=== PATIENT | female | born 1970 | race Caucasian/White ===

== ENCOUNTER 2016-07-16 18:27 | Emergency (ER) | payer OTHER ==
[2016-07-16 18:55] LABS: Hematocrit 30 % (35-47); Hemoglobin 9.3 g/dl (12.0-16.0); Mean Corpuscular HGB Conc 31 g/dl (31-36); Mean Corpuscular Hemoglobin 22 pg (27-31); Mean Platelet Volume 8 um3 (7.4-10.4); Red Blood Count 4.31 10^6/ul (4.0-5.4); Red Cell Distribution Width 18 % (10.5-15); White Blood Count 7.5 10^3/ul (3.5-10.8)
[2016-07-16 18:57] LABS: Comments Flag Yes; Mean Corpuscular Volume 69 fL (80-97)
--- NOTE | 2016-07-16 19:09 | RAD ---
INDICATION: Chest pain COMPARISON: November 05, 2012 TECHNIQUE: An AP portable view obtained at 1900 hours is submitted. FINDINGS: Bones/Soft Tissues: There are no acute bony findings. Cardiomediastinal: The cardiomediastinal silhouette is normal. Lungs: There are no infiltrates. Pleura: There are no pleural effusions. Other: None IMPRESSION: NORMAL CHEST.
[2016-07-16 19:11] VITALS: BP 139/74
[2016-07-16 19:14] LABS: Albumin 4.1 g/dL (3.2-5.2); BUN/Creatinine Ratio 17.2 (8-20); Calcium 9.3 mg/dL (8.6-10.3); EGFR African American 84.6 (>60); EGFR Non-African American 65.8 (>60); Globulin 2.6 g/dL (2-4); Potassium 3.5 mmol/L (3.5-5.0); Total Bilirubin 0.3 mg/dL (0.2-1.0); Total Protein 6.7 g/dL (6.4-8.9)
[2016-07-16] MEDS ORDERED: NS 0.9% 1000 ML* 1,000 ML IV ONE (19:50)
--- NOTE | 2016-07-16 19:52 | ED ---
Aurea Ruffin Michael, scribed for Tricia Sultana MD on 07/16/16 at 1843 . HPI Chest Pain - HPI Summary HPI Summary: 45 y/o female comes to the ED presenting with episodic chest "pulling" for the past 11 days. The pt reports that the chest pulling started as intermittent episodes, and then the pain increased frequency since 4 days ago. She states experiencing 4-5 episodes of chest tightness per minute. Pt states has a h/o PVCs and thinks this is, but seems more frequent than normal. Pt states she has been more fatigued than normal. Pt denies sob. States feels little nausea and little lightheaded. Pt has an appt with PCP for these sx on Monday. Pt states she cut down caffeine 10 days ago, but states she still drinks 1/2 can ever other day or so. Pt states occasionally with episodes feels sob, but episodes and sensations are very brief. Pt states this week she had cramping of a varicose vein in LE, fatigue, SOB, lightheadedness, nausea, and a cough. The pt also states exposure to ticks in January of 2016. Pt states has a h/o GERD and gets "esophageal spasms" but does not take antacid. Pt also with a h/o anemia related to very heavy periods. Pt does not take vitamins or iron supplementation. Pt has not seen [employer]UPATIONS TE[employer]ER in > 1 year. States pt's mom for CAD - however mom was a smoker, had previous vascular dx and hld. The PMHx is significant for GERD and anemia. The FHx is significant for cardiac disease. Pt does not exercise routinely, but does not get cp or sob with activity - History of Current Complaint Chief Complaint: EDChestPainROMI Time Seen by Provider: 07/16/16 18:31 Hx Obtained From: Patient, Medical Records Onset/Duration: Started Weeks Ago, Still Present, Worse Since - 07/12/16 Timing: Intermittent Initial Severity: Mild Current Severity: Moderate Pain Intensity: 3 Pain Scale Used: 0-10 Numeric Chest Pain Location: Diffuse Chest Pain Radiates: No Character: Fluttering, Pounding, Skipped Beats, Tightness Aggravating Factor(s): Exertion Alleviating Factor(s): Nothing Associated Signs and Symptoms: Positive: Chest Pain, Shortness of Breath, Lightheadedness, Nausea, Cough, Other: - cramping in varicose vein in LE. fatigue. palpitations. - Risk Factors Pulmonary Embolism Risk Factors: Negative TAD Risk Factors: Negative - Allergy/Home Medications Allergies/Adverse Reactions: Allergies Allergy/AdvReac Type Severity Reaction Status Date / Time No Known Allergies Allergy Verified 07/16/16 18:37 PMH/Surg Hx/FS Hx/Imm Hx Previously Healthy: No - anemia Endocrine/Hematology History: Denies: Hx Anticoagulant Therapy, Hx Diabetes Cardiovascular History: Reports: Hx Angina Denies: Hx Hypertension, Hx Pacemaker/ICD GI History: Reports: Hx Gastroesophageal Reflux Disease History: Denies: Hx Renal Disease Musculoskeletal History: Reports: Hx Back Problems Sensory History: Reports: Hx Contacts or Glasses Denies: Hx Hearing Aid Opthamlomology History: Reports: Hx Contacts or Glasses Psychiatric History: Reports: Hx Depression - seasonal/situational Denies: Hx Panic Disorder - Surgical History Surgery Procedure, Year, and Place: Back surgery-2 discs repaired (anterior approach). Tubal ligation. Tonsillectomy and adenoidectomy Infectious Disease History: No Infectious Disease History: Denies: Traveled Outside the [place] in Last 30 Days - Family History Known Family History: Positive: Cardiac Disease - Social History Occupation: Employed Full-time Lives: With Family Alcohol Use: None Substance Use Type: Reports: None Smoking Status (MU): Never Smoked Tobacco Review of Systems Positive: Fatigue. Negative: Fever Eyes: Negative Positive: Palpitations, Chest Pain Positive: Shortness Of Breath, Cough Gastrointestinal: Negative Positive: Nausea. Negative: Vomiting Genitourinary: Negative Positive: Other - brief cramping varicose vein LE Neurological: Other - lightheadedness Negative: Weakness Psychological: Normal All Other Systems Reviewed And Are Negative: Yes Physical Exam Triage Information Reviewed: Yes Vital Signs On Initial Exam: Initial Vitals Temp Pulse Resp BP Pulse Ox 99.2 F 88 16 156/87 100 07/16/16 18:31 07/16/16 18:31 07/16/16 18:31 07/16/16 18:31 07/16/16 18:31 Vital Signs Reviewed: Yes Appearance: Positive: Well-Appearing, No Pain Distress, Well-Nourished Skin: Positive: Warm, Dry Head/Face: Positive: Normal Head/Face Inspection Eyes: Positive: Normal, EOMI, YOVANY ENT: Positive: Normal ENT inspection, Pharynx normal, TMs normal. Negative: Nasal congestion Neck: Positive: Supple, Nontender, No Lymphadenopathy Respiratory/Lung Sounds: Positive: Clear to Auscultation, Breath Sounds Present. Negative: Stridor, Wheezes Cardiovascular: Positive: Normal, RRR, Other - no bruits b/l. Negative: Murmur , Rub Abdomen Description: Positive: Nontender, No Organomegaly, Soft Bowel Sounds: Positive: Present Musculoskeletal: Positive: Normal Neurological: Positive: Normal, Sensory/Motor Intact, Alert, Oriented to Person Place, Time. Negative: Ataxic Gait Psychiatric: Positive: Normal AVPU Assessment: Alert - Trena Coma Scale Best Eye Response: 4 - Spontaneous Best Motor Response: 6 - Obeys Commands Best Verbal Response: 5 - Oriented Coma Scale Total: 15 Diagnostics - Vital Signs Vital Signs Temp Pulse Resp BP Pulse Ox 07/16/16 18:31 99.2 F 88 16 156/87 100 - Laboratory Lab Results: Lab Results 07/16/16 07/16/16 07/16/16 Range/Units 18:43 18:43 18:43 WBC 7.5 (3.5-10.8) 10^3/ul RBC 4.31 (4.0-5.4) 10^6/ul Hgb 9.3 L (12.0-16.0) g/dl Hct 30 L (35-47) % MCV 69 L (80-97) fL MCH 22 L (27-31) pg MCHC 31 (31-36) g/dl RDW 18 H (10.5-15) % Plt Count 292 (150-450) 10^3/ul MPV 8 (7.4-10.4) um3 Neut % (Auto) 61.0 (38-83) % Lymph % (Auto) 30.6 (25-47) % [place] % (Auto) 7.0 (1-9) % Eos % (Auto) 0.9 (0-6) % Baso % (Auto) 0.5 (0-2) % Absolute Neuts (auto) 4.5 (1.5-7.7) 10^3/ul Absolute Lymphs (auto) 2.3 (1.0-4.8) 10^3/ul Absolute Monos (auto) 0.5 (0-0.8) 10^3/ul Absolute Eos (auto) 0.1 (0-0.6) 10^3/ul Absolute Basos (auto) 0 (0-0.2) 10^3/ul Absolute Nucleated RBC 0 10^3/ul Nucleated RBC % 0 D-Dimer, Quantitative < 200 (Less Than 230) ng/mL Sodium 136 (133-145) mmol/L Potassium 3.5 (3.5-5.0) mmol/L Chloride 104 (101-111) mmol/L Carbon Dioxide 27 (22-32) mmol/L Anion Gap 5 (2-11) mmol/L BUN 16 (6-24) mg/dL Creatinine 0.93 (0.51-0.95) mg/dL Est GFR ( Amer) 84.6 (>60) Est GFR (Non-Af Amer) 65.8 (>60) BUN/Creatinine Ratio 17.2 (8-20) Glucose 104 H (70-100) mg/dL Calcium 9.3 (8.6-10.3) mg/dL Magnesium 2.0 (1.9-2.7) mg/dL Total Bilirubin 0.30 (0.2-1.0) mg/dL AST 12 L (13-39) U/L ALT 12 (7-52) U/L Alkaline Phosphatase 48 (34-104) U/L Total Creatine Kinase 58 (10-223) U/L Troponin I 0.00 (<0.04) ng/mL Total Protein 6.7 (6.4-8.9) g/dL Albumin 4.1 (3.2-5.2) g/dL Globulin 2.6 (2-4) g/dL Albumin/Globulin Ratio 1.6 (1-3) TSH Pending Result Diagrams: 07/16/16 18:43 07/16/16 18:43 Lab Statement: Any lab studies that have been ordered have been reviewed, and results considered in the medical decision making process. - Radiology CXR Xray Interpretation: No Acute Changes Radiology Interpretation Completed By: Radiologist - CT CTA Chest/Thorax CT Interpretation: No Acute Changes CT Interpretation Completed By: Radiologist - EKG EK EKG Rhythm: Sinus Rhythm - 86 bpm EKG Comparison: No Significant Change Chest Pain Course/Dx - Course Assessment/Plan: Pt presents with feeling of pulling in neck and chest Pt state sx are brief and fleeting. During examination, pt note to have PVC, isolated, every 20-30 beats - pt was sensing these as "episodes" Pt without focal findings on exam. Diff includes CAD (low suspcion, normal EKG - will check trop x 1), PE, thyroid, electrolyte, dehydration. Will give IVF, CTA, labs, reassess If w/u neg will d/c pt with pcp appt monday - pt in agreement with plan. Will d.c pcp ?stress, ? holter - Diagnoses Provider Diagnoses: PVC (premature ventricular contraction), GERD (gastroesophageal reflux disease) , Anemia Discharge - Discharge Plan Condition: Stable Disposition: HOME Prescriptions: Ferrous Sulfate TAB* 325 mg PO BID #60 tab Patient Education Materials: Gastroesophageal Reflux Disease (ED), Premature Ventricular Contractions (ED), Anemia (ED) Referrals: Law Juan MD [Primary Care Provider] - Maxi Richards MD [Medical Doctor] - Levi Ramirez MD [Medical Doctor] - Additional Instructions: - Stay well hydrated. Drink plenty of non-alcoholic, non-caffinated beverages - Eat regular, healthy meals - small, frequent meals - It is recommended you take iron 2 times a day to help with your iron - Avoid excess caffeine - Avoid spicy food, acidic food, tomato based foods, fried foods - It is recommended you follow-up with your primary doctor on Monday as scheduled, Dr. Richards for your heavy periods, and GI for your GERD Call your doctor or return with questions or concerns The documentation as recorded by the Aurea santos Michael accurately reflects the service I personally performed and the decisions made by me, Tricia Sultana MD.
[2016-07-16] MEDS ORDERED: Iohexol 350* (CONTRAST) 500 ML MDV IV ONE (19:54)
[2016-07-16 19:59] LABS: TSH (Thyroid Stimulating Horm) 3.1 mcIU/mL (0.34-5.60)
[2016-07-16 20:04] LABS: EBV Response NO
[2016-07-16 20:20] LABS: Manual Entry Verification DOM0004; Mono Internal Control QC Line Present
--- NOTE | 2016-07-16 20:36 | RAD ---
INDICATION: Chest pain. Short of breath. Evaluate for pulmonary embolus. Chest x-ray July 16, 2016 COMPARISON: Chest x-ray July 16, 2016 TECHNIQUE: Axial source images were obtained from the thoracic inlet to the hemidiaphragms following administration of [address] angiographic technique was utilized. Coronal and sagittal reconstructed images were acquired. CHEST FINDINGS: Neck/thyroid: The visualized neck to include the thyroid appear normal. Chest wall: There are no acute abnormalities of the bony thorax or chest wall. There is no supraclavicular, infraclavicular, or axillary lymphadenopathy. Lungs : There are no pulmonary parenchymal masses or infiltrates. The pulmonary interstitium appears normal. There are no endobronchial lesions. Cardiomediastinal structures: There is no CT evidence of acute pulmonary embolic disease. The heart is normal in size. There is no pericardial effusion. There is no evidence of aortic aneurysm or dissection. There is no mediastinal or hilar adenopathy. The esophagus appears normal. Pleura : There are no pleural-based masses or effusions. Other: There is a small hiatal hernia.. IMPRESSION: NO CT EVIDENCE OF ACUTE PULMONARY EMBOLIC DISEASE. LUNGS CLEAR.
== END 2016-07-16 21:20 | disposition home or self-care (01) ==
LOC: ED 18:27
DX: I49.3 Ventricular premature depolarization (principal); K21.9 Gastro-esophageal reflux disease without esophagitis; D64.9 Anemia, unspecified; R06.02 Shortness of breath; R05 Cough; R11.0 Nausea; R42 Dizziness and giddiness
CPT/HCPCS: 36415; 71010; 71275; 80053; 82550; 83735; 84443; 84484; 85025; 85379; 86308; 86618; 93005; 96360; 99283; Q9967

== ENCOUNTER 2018-04-06 18:30 | Emergency (ER) | payer BC, OTHER ==
[2018-04-06 20:21] LABS: ABS Basophils 0 10^3/ul (0-0.2); ABS Eosinophils 0.1 10^3/ul (0-0.6); ABS Lymphocytes 1.9 10^3/ul (1.0-4.8); ABS Monocytes 0.5 10^3/ul (0-0.8); ABS Neutrophils 4.4 10^3/ul (1.5-7.7); ABS Nucleated RBC 0 10^3/ul; Eosinophil % 1.2 % (0-6); Hematocrit 29 % (35-47); Hemoglobin 8.9 g/dl (12.0-16.0); Lymphocyte % 27.6 % (25-47); Mean Corpuscular HGB Conc 31 g/dl (31-36); Mean Corpuscular Hemoglobin 20 pg (27-31); Mean Corpuscular Volume 64 fL (80-97); Mean Platelet Volume 7.7 um3 (7.4-10.4); Nucleated Red Blood Cells % 0; Platelet Count 331 10^3/ul (150-450); Red Blood Count 4.44 10^6/ul (4.00-5.40); Red Cell Distribution Width 19 % (10.5-15)
[2018-04-06 20:27] LABS: EGFR Non-African American 81.1 (>60)
--- NOTE | 2018-04-06 20:29 | ED ---
HPI Chest Pain - HPI Summary HPI Summary: Patient is a 45 y/o F w/ c/o chest pain onsetting 1.5 hours ago. She also notes intermittent left arm pain/numbness and right eye blurriness. Patient denies N/V /D and SOB. She reports fatigue and neck pain w/ ACOSTA for the past few days as well. In the room, she notes that she is experiencing a "prickly" feeling in her chest, right eye blurriness, and neck pain still. She denies any home medications. PMHx of anemia. FMHx of cardiac disease in mother. On triage, pain is rated 3/10, nothing is noted to aggravate/alleviate Sx. Allergies are reviewed. - History of Current Complaint Chief Complaint: EDChestWallPain Time Seen by Provider: 04/06/18 20:03 Hx Obtained From: Patient Onset/Duration: Started Hours Ago - chest pain, Started Days Ago - Sx other than chest pain, Still Present - prickly" feeling in her chest, right eye blurriness, and neck pain Current Severity: Mild - 3/10 Pain Intensity: 3 Pain Scale Used: 0-10 Numeric - 3/10 Character: Other: - currently described as a "prickly" feeling Aggravating Factor(s): Nothing Alleviating Factor(s): Nothing Associated Signs and Symptoms: Positive: Chest Pain, Vision Changes - blurred vision at right eye, Headaches, Other: - POSITIVE: neck pain, fatigue, left arm numbness and pain NEGATIVEL diarrhea. Negative: Shortness of Breath, Nausea, Vomiting - Allergy/Home Medications Allergies/Adverse Reactions: Allergies Allergy/AdvReac Type Severity Reaction Status Date / Time No Known Allergies Allergy Verified 04/06/18 19:08 Home Medications: Home Medications NK [No Home Medications Reported] 04/06/18 [History Confirmed 04/06/18] PMH/Surg Hx/FS Hx/Imm Hx Endocrine/Hematology History: Denies: Hx Anticoagulant Therapy, Hx Diabetes Cardiovascular History: Reports: Hx Angina Denies: Hx Hypertension, Hx Pacemaker/ICD GI History: Reports: Hx Gastroesophageal Reflux Disease History: Denies: Hx Renal Disease Musculoskeletal History: Reports: Hx Back Problems Sensory History: Reports: Hx Contacts or Glasses Denies: Hx Hearing Aid Opthamlomology History: Reports: Hx Contacts or Glasses Psychiatric History: Reports: Hx Depression - seasonal/situational Denies: Hx Panic Disorder - Surgical History Surgery Procedure, Year, and Place: Back surgery-2 discs repaired (anterior approach). Tubal ligation. Tonsillectomy and adenoidectomy Infectious Disease History: No Infectious Disease History: Denies: Traveled Outside the [place] in Last 30 Days - Family History Known Family History: Positive: Cardiac Disease - Social History Alcohol Use: None Substance Use Type: Reports: None Smoking Status (MU): Never Smoked Tobacco Review of Systems Positive: Fatigue Positive: Blurred Vision - right eye Positive: Chest Pain Negative: Shortness Of Breath Negative: Vomiting, Diarrhea, Nausea Positive: Other - left arm pain, neck pain Positive: Headache, Numbness - left arm All Other Systems Reviewed And Are Negative: Yes Physical Exam - Summary Physical Exam Summary: Appearance: The patient is well-nourished in no acute distress and in no acute pain. Skin: The skin is warm and dry and skin color reflects adequate perfusion. HEENT: The head is normocephalic and atraumatic. The pupils are equal and reactive. The conjunctivae are clear and without drainage. Nares are patent and without drainage. Mouth reveals moist mucous membranes and the throat is without erythema and exudate. The external ears are intact. The ear canals are patent and without drainage. The tympanic membranes are intact. Neck: The neck is supple with full range of motion and non-tender. There are no carotid bruits. There is no neck vein distension. Respiratory: Chest is non-tender. Lungs are clear to auscultation and breath sounds are symmetrical and equal. Cardiovascular: Heart is regular rate and rhythm. There is no murmur or rub auscultated. There is no peripheral edema and pulses are symmetrical and equal. Abdomen: The abdomen is soft and non-tender. There are normal bowel sounds heard in all four quadrants and there is no organomegaly palpated. Musculoskeletal: There is no back tenderness noted. Extremities are non-tender with full range of motion. There is good capillary refill. There is no peripheral edema or calf tenderness elicited. Neurological: Patient is alert and oriented to person, place and time. The patient has symmetrical motor strength in all four extremities. Cranial nerves are grossly intact. Deep tendon reflexes are symmetrical and equal in all four extremities. Psychiatric: The patient has an appropriate affect and does not exhibit any anxiety or depression. Triage Information Reviewed: Yes Vital Signs On Initial Exam: Initial Vitals Temp Pulse Resp BP Pulse Ox 97.5 F 77 16 167/99 100 04/06/18 19:04 04/06/18 19:04 04/06/18 19:04 04/06/18 19:04 04/06/18 19:04 Vital Signs Reviewed: Yes Diagnostics - Vital Signs Vital Signs Temp Pulse Resp BP Pulse Ox 04/06/18 20:12 77 16 100 04/06/18 20:11 19 157/107 04/06/18 19:04 97.5 F 77 16 167/99 100 - Laboratory Lab Results: Lab Results 04/06/18 Range/Units 19:55 WBC 7.0 (3.5-10.8) 10^3/ul RBC 4.44 (4.00-5.40) 10^6/ul Hgb 8.9 L (12.0-16.0) g/dl Hct 29 L (35-47) % MCV 64 L (80-97) fL MCH 20 L (27-31) pg MCHC 31 (31-36) g/dl RDW 19 H (10.5-15) % Plt Count 331 (150-450) 10^3/ul MPV 7.7 (7.4-10.4) um3 Neut % (Auto) 63.2 (38-83) % Lymph % (Auto) 27.6 (25-47) % [place] % (Auto) 7.3 H (0-7) % Eos % (Auto) 1.2 (0-6) % Baso % (Auto) 0.7 (0-2) % Absolute Neuts (auto) 4.4 (1.5-7.7) 10^3/ul Absolute Lymphs (auto) 1.9 (1.0-4.8) 10^3/ul Absolute Monos (auto) 0.5 (0-0.8) 10^3/ul Absolute Eos (auto) 0.1 (0-0.6) 10^3/ul Absolute Basos (auto) 0 (0-0.2) 10^3/ul Absolute Nucleated RBC 0 10^3/ul Nucleated RBC % 0 Result Diagrams: 04/06/18 19:55 04/06/18 19:55 Lab Statement: Any lab studies that have been ordered have been reviewed, and results considered in the medical decision making process. - Radiology CXR Xray Interpretation: No Acute Changes Radiology Interpretation Completed By: ED Physician - no acute pathology, pending official report. - EKG 1935 Cardiac Rate: NL - rate of 74 BPM EKG Rhythm: Sinus Rhythm ST Segment: Normal Ectopy: None EKG Interpretation: no STEMI Chest Pain Course/Dx - Course Course Of Treatment: Ms. Colton Sanon presented with an atypical chest pain of about one and a half hours duration. He was left sided and described as pins and needles. There were no exacerbating or relieving factors. The symptoms went down her left arm. She is recently had tension in her neck. Her exam was unremarkable with good pulses all around and no bruits. I cannot reproduce the symptoms. She was kept on a monitor and evaluated with labs including a delayed troponin and d-dimer. I don't think anything dangerous is going on and I recommended close follow-up. - Diagnoses Provider Diagnoses: Chest pain Discharge - Sign-Out/Discharge Documenting (check all that apply): Patient Departure - discharge - Discharge Plan Condition: Stable Disposition: HOME Patient Education Materials: Chest Pain (ED) Referrals: Law Juan MD [Primary Care Provider] - 2 Days Additional Instructions: RETURN TO ED FOR ANY NEW OR WORSENING SYMPTOMS. FOLLOW UP WITH PRIMARY CARE PHYSICIAN IN 1-2 DAYS. - Billing Disposition and Condition Condition: STABLE Disposition: Home - Attestation Statements Document Initiated by Gilda: Yes Documenting Scribe: Orlando Carias Provider For Whom Gilda is Documenting (Include Credential): Ramu Celaya MD Scribe Attestation: Orlando Ruffin , scribed for Ramu Celaya MD on 04/06/18 at 2220. Scribe Documentation Reviewed: Yes Provider Attestation: The documentation as recorded by the Orlando santos accurately reflects the service I personally performed and the decisions made by me, Ramu Celaya MD
[2018-04-06] MEDS ORDERED: Ibuprofen TAB* 600 MG PO ONE (21:14)
[2018-04-07 00:28] VITALS: BP 135/79
--- NOTE | 2018-04-07 07:46 | RAD ---
Indication: LEFT side chest pain. Comparison: July 16, 2016 CT chest. July 16, 2016 chest radiograph. Technique: Standing PA 1930 hours dual-energy technique. Report: LEFT epicardial fat pad noted. No focal pulmonary lesion, compelling alveolar consolidation, pleural effusion, pneumothorax. The heart, pulmonary vasculature, and mediastinal contours are unremarkable. No rib fracture evident. IMPRESSION: #. No evidence for acute intrathoracic disease. R0
== END 2018-04-07 00:54 | disposition home or self-care (01) ==
LOC: ED 18:30
DX: R07.9 Chest pain, unspecified (principal); H53.8 Other visual disturbances; R53.83 Other fatigue; M54.2 Cervicalgia
CPT/HCPCS: 36415; 71045; 80053; 83605; 84484; 85025; 85379; 93005; 99283; A9270-GY

== ENCOUNTER 2018-12-01 16:39 | Emergency (ER) | payer OTHER ==
[2018-12-01 17:04] VITALS: BP 156/82
[2018-12-01] MEDS ORDERED: Cyclobenzaprine TAB* 10 MG PO ONE ×2 (17:11→18:19)
--- NOTE | 2018-12-01 17:18 | UC ---
Neck Pain HPI - HPI Summary HPI Summary: WOKE UP THIS MORNING WITH SHARP LEFT-SIDED POSTERIOR NECK PAIN AND INABILITY TO ROTATE HER HEAD. FEELS LIKE MUSCLE SPASMS. HAS HAD A SLIGHT PINCH IN HER LEFT POSTERIOR NECK/SHOULDER FOR THE PAST WEEK AND A HALF. NO NUMBNESS/TINGLING. DENIES ANY TRAUMA OR INJURY OR UNUSUAL ACTIVITY. - History of Current Complaint Chief Complaint: UCUpperExtremity Stated Complaint: NECK STRAIN Time Seen by Provider: 12/01/18 16:46 Hx Obtained From: Patient Mechanism Of Injury: No Known Trauma Timing: Constant Onset/Duration: Sudden Onset, Lasting Hours, Still Present Severity: Moderate Pain Intensity: 5 Pain Scale Used: 0-10 Numeric Location: Discrete At: - LEFT POSTERIOR Character: Sharp, Spasmotic Aggravating Factors: Movement Alleviating Factors: Nothing Associated Signs & Symptoms: Negative: Swelling, Weakness, Headache, Paresthesia - Allergies/Home Medications Allergies/Adverse Reactions: Allergies Allergy/AdvReac Type Severity Reaction Status Date / Time No Known Allergies Allergy Verified 12/01/18 17:04 PMH/Surg Hx/FS Hx/Imm Hx Previously Healthy: Yes Other History Of: Negative For: Anticoagulant Therapy - Surgical History Surgical History: Yes Surgery Procedure, Year, and Place: Back surgery-2 discs repaired (anterior approach). Tubal ligation. Tonsillectomy and adenoidectomy - Family History Known Family History: Positive: Cardiac Disease - Social History Alcohol Use: Rare Substance Use Type: None Smoking Status (MU): Never Smoked Tobacco - Immunization History Most Recent Tetanus Shot: within 10 years Review of Systems All Other Systems Reviewed And Are Negative: Yes Constitutional: Positive: Negative Respiratory: Positive: Negative Cardiovascular: Positive: Negative Gastrointestinal: Positive: Negative Musculoskeletal: Positive: Arthralgia, Decreased ROM, Myalgia Neurological: Positive: Negative. Negative: Paresthesia Physical Exam Triage Information Reviewed: Yes Appearance: Well-Nourished, Pain Distress - MILD Vital Signs: Initial Vital Signs Temp 98.4 F 12/01/18 16:57 Pulse 91 12/01/18 16:57 Resp 18 12/01/18 16:57 BP 156/82 12/01/18 16:57 Pulse Ox 100 12/01/18 16:57 Vital Signs Reviewed: Yes Eyes: Positive: Conjunctiva Clear ENT: Positive: Hearing grossly normal Neck: Positive: Supple, No Lymphadenopathy, Tenderness @ - LEFT POSTERIOR NECK PARASPINAL MUSCLES. NO BONY TENDERNESS Respiratory: Positive: No respiratory distress, No accessory muscle use Cardiovascular: Positive: Pulses Normal Abdomen Description: Positive: Soft Musculoskeletal: Positive: No Edema Neurological: Positive: Alert Psychological: Positive: Age Appropriate Behavior Skin: Negative: Rashes Diagnostics - Radiology C-SPINE XRAYS Radiology Interpretation Completed By: Radiologist Summary of Radiographic Findings: The vertebra are in normal alignment. No prevertebral soft tissue swelling or fracture is seen. Disc spaces appear maintained. No radiographic evidence of fracture or subluxation. Neck Pain Course/Dx - Differential Dx/Diagnosis Provider Diagnosis: Strain of neck muscle Discharge - Sign-Out/Discharge Documenting (check all that apply): Patient Departure All imaging exams completed and their final reports reviewed: Yes - Discharge Plan Condition: Stable Disposition: HOME Prescriptions: Cyclobenzaprine TAB* [Flexeril TAB*] 10 mg PO TID PRN #30 tab PRN Reason: Pain Ibuprofen TAB* [Motrin TAB* 800 MG] 800 mg PO Q8H PRN #30 tab PRN Reason: Pain predniSONE TAB* [Deltasone 20 MG TAB*] 40 mg PO DAILY #10 tab Patient Education Materials: Muscle Strain (ED) Referrals: Law Juan MD [Primary Care Provider] - If Needed Additional Instructions: CERVICAL SPINE X-RAYS TODAY SHOW: THE VERTEBRA ARE IN NORMAL ALIGNMENT. NO PREVERTEBRAL SOFT TISSUE SWELLING OR FRACTURE IS SEEN. DISC SPACES APPEAR MAINTAINED. NO RADIOGRAPHIC EVIDENCE OF FRACTURE OR SUBLUXATION. YOU'RE LIKELY EXPERIENCING A MUSCLE STRAIN/SPASM. TAKE THE FLEXERIL 3 TIMES DAILY NEEDED. BE AWARE THIS MAY MAKE YOU GROGGY. IBUPROFEN NEEDED FOR DISCOMFORT. IF THESE MEDICATIONS ARE NOT ALLEVIATING YOUR SYMPTOMS YOU MAY TRY A SHORT BURST OF PREDNISONE. USE HEAT, MASSAGE AND BE SURE TO GO THROUGH SLOW RANGE OF MOTION AND STRETCHING EXERCISES DAILY ABLE TO PREVENT STIFFENING UP AND MAKING THE DISCOMFORT WORSE. FOLLOW-UP WITH YOUR PCP IF YOU'RE NOT IMPROVING EXPECTED OVER THE NEXT SEVERAL DAYS. - Billing Disposition and Condition Condition: STABLE Disposition: Home
== END 2018-12-01 18:39 | disposition home or self-care (01) ==
LOC: UCEAST 16:39
DX: S16.1XXA Strain of muscle, fascia and tendon at neck level, initial encounter (principal); X58.XXXA Exposure to other specified factors, initial encounter; Y92.9 Unspecified place or not applicable
CPT/HCPCS: 72040; 99212; A9270-GY; G0463

== ENCOUNTER 2019-08-23 15:13 | Emergency (ER) | payer OTHER ==
[2019-08-23 15:37] VITALS: BP 152/98
--- NOTE | 2019-08-23 16:18 | UC ---
Skin Complaint HPI - HPI Summary HPI Summary: 48-year-old female presenting with complaint of "itchy skin all over" 9 days. Patient denies any obvious rash or lesions on the skin. States the itching is constant and "switches from different body parts." Denies new products, foods, medications, exposures. Denies lip, tongue, throat swelling. Taking benadryl without relief. Patient also notes that she has had "swollen ankles at the end of the day" that started recently. States this has never happened before. Denies pain. Denies sob and chest pain. Denies recent illness. Denies fever and chills. Does note fatigue and 15lb weight gain in 6 months despite healthy diet. No daily medications. Never smoker, denies alcohol. PMHx significant for iron deficiency anemia. - History of Current Complaint Chief Complaint: UCRash Stated Complaint: SKIN COMPLAINT Hx Obtained From: Patient Hx Last Menstrual Period: three weeks ago Pain Intensity: 2 Pain Scale Used: 0-10 Numeric - Allergy/Home Medications Allergies/Adverse Reactions: Allergies Allergy/AdvReac Type Severity Reaction Status Date / Time No Known Allergies Allergy Verified 08/23/19 15:29 Home Medications: Home Medications Tranexamic Acid 1 tab PO ONCE PRN 08/23/19 [History Confirmed 08/23/19] Valacyclovir HCl [Valtrex] 500 mg PO DAILY PRN 08/23/19 [History Confirmed 08/23] predniSONE 20 mg TAB [Deltasone 20 MG TAB*] 40 mg PO DAILY #8 tab 08/23/19 [Rx] PMH/Surg Hx/FS Hx/Imm Hx Other History Of: Negative For: Anticoagulant Therapy - Surgical History Surgical History: Yes Surgery Procedure, Year, and Place: Back surgery-2 discs repaired (anterior approach). Tubal ligation. Tonsillectomy and adenoidectomy - Family History Known Family History: Positive: Cardiac Disease - mother, Hypertension - mother - Social History Alcohol Use: None Substance Use Type: None Smoking Status (MU): Never Smoked Tobacco - Immunization History Most Recent Tetanus Shot: within 10 years Review of Systems All Other Systems Reviewed And Are Negative: Yes Constitutional: Positive: Negative Skin: Positive: Other - pruritus "all over" Respiratory: Positive: Negative Cardiovascular: Positive: Negative Gastrointestinal: Positive: Negative Neurovascular: Positive: Negative Musculoskeletal: Positive: Edema - ankles Neurological/Mental Status: Positive: Negative Physical Exam - Summary Physical Exam Summary: Vital Signs Reviewed: Yes A+Ox3, no distress, well appearing Eyes: Conjunctiva Clear ENT: Hearing grossly normal Neck: Positive: Supple Respiratory: Positive: No respiratory distress, No accessory muscle use + CTA throughout no w/r Cardiovascular: RRR nl s1, s2 no m/r Musculoskeletal Exam: ALMAZAN x 4 without difficulty, no edema Neurological: Positive: Alert Psychological: Positive: age appropriate behavior Skin: Positive: no rash, no ecchymosis Vital Signs: Initial Vital Signs Temp 98.3 F 08/23/19 15:20 Pulse 93 08/23/19 15:20 Resp 18 08/23/19 15:20 BP 177/94 08/23/19 15:20 Pulse Ox 99 08/23/19 15:20 Lab Results 08/23/19 Range/Units 16:21 POC Urine Color Yellow POC Urine Clarity Clear POC Urine pH 7.0 (5-9) POC Ur Specif [place] 1.015 (1.010-1.030) POC Urine Protein Negative (Negative) POC Ur Glucose (UA) Negative (Negative) POC Urine Ketones Negative (Negative) POC Urine Blood Trace-intact (Negative) POC Urine Nitrite Negative (Negative) POC Urine Bilirubin Negative (Negative) POC Urine Urobilinogen 0.2 (Negative) POC U Leukocyte Esteras Trace A (Negative) Course/Dx - Course Course Of Treatment: Discussed unknown source of pruritus with patient. Patient states concern for cardiac and kidney sources of itching. Baseline blood work was obtained. Patient agreed to be treated with short course of prednisone to help relieve itching. Instructed to continue with Benadryl and add Pepcid. Instructed patient to follow up with PCP for further discussion of labwork and elevated blood pressure. Patient voiced understanding and agreed with the treatment plan. - Diagnoses Provider Diagnosis: Elevated blood pressure reading without diagnosis of hypertension, Generalized pruritus Discharge ED - Sign-Out/Discharge Documenting (check all that apply): Patient Departure All imaging exams completed and their final reports reviewed: No Studies - Discharge Plan Condition: Stable Disposition: HOME Prescriptions: predniSONE 20 mg TAB [Deltasone 20 MG TAB*] 40 mg PO DAILY #8 tab Patient Education Materials: Itchy Skin (ED) Referrals: Law Juan MD [Primary Care Provider] - As Soon As Possible Additional Instructions: As discussed, it is unclear what is causing your itching today. Take prednisone as prescribed. You may also add Pepcid and continue with benadryl. You had baseline labs done today. Follow up with your primary care provider next week to further discussion of labs and symptoms. - Billing Disposition and Condition Condition: STABLE Disposition: Home
[2019-08-24 10:21] LABS: Albumin 4.5 g/dL (3.2-5.2); BUN/Creatinine Ratio 15.3 (8-20); Calcium 9.4 mg/dL (8.6-10.3); EGFR African American 87.1 (>60); Globulin 2.3 g/dL (2-4); Total Bilirubin 0.3 mg/dL (0.2-1.0); Total Protein 6.8 g/dL (6.4-8.9)
[2019-08-24 10:25] LABS: ABS Eosinophils 0.2 10^3/ul (0-0.6); ABS Lymphocytes 1.9 10^3/ul (1.0-4.8); ABS Monocytes 0.6 10^3/ul (0-0.8); ABS Neutrophils 4.3 10^3/ul (1.5-7.7); Eosinophil % 2.2 %; Hematocrit 31 % (35-47); Hemoglobin 9.5 g/dL (12.0-16.0); Lymphocyte % 27.8 %; Mean Corpuscular HGB Conc 31 g/dL (31-36); Mean Corpuscular Hemoglobin 21 pg (27-31); Mean Corpuscular Volume 69 fL (80-97); Mean Platelet Volume 8.9 fL (7.4-10.4); Nucleated Red Blood Cells % 0.1; Platelet Count 308 10^3/uL (150-450); Red Blood Count 4.46 10^6 /uL (3.70-4.87); Red Cell Distribution Width 17 % (10-15)
[2019-08-24 10:34] LABS: TSH (Thyroid Stimulating Horm) 3.46 mcIU/mL (0.34-5.60)
--- NOTE | 2019-08-24 16:45 | UC ---
- Progress Note Progress Note: CBC values are pt's baseline compared to previous. Other labs WNL Course/Dx - Diagnoses Provider Diagnoses: Elevated blood pressure reading without diagnosis of hypertension, Generalized pruritus Discharge ED - Sign-Out/Discharge Documenting (check all that apply): Post-Discharge Follow Up All imaging exams completed and their final reports reviewed: No Studies - Discharge Plan Condition: Stable Disposition: HOME Prescriptions: predniSONE 20 mg TAB [Deltasone 20 MG TAB*] 40 mg PO DAILY #8 tab Patient Education Materials: Itchy Skin (ED) Referrals: Law Juan MD [Primary Care Provider] - As Soon As Possible Additional Instructions: As discussed, it is unclear what is causing your itching today. Take prednisone as prescribed. You may also add Pepcid and continue with benadryl. You had baseline labs done today. Follow up with your primary care provider next week to further discussion of labs and symptoms. - Billing Disposition and Condition Condition: STABLE Disposition: Home
== END 2019-08-23 17:27 | disposition home or self-care (01) ==
LOC: UCEAST 15:13
DX: L29.9 Pruritus, unspecified (principal); R03.0 Elevated blood-pressure reading, without diagnosis of hypertension; M89.8X7 Other specified disorders of bone, ankle and foot
CPT/HCPCS: 36415; 80053; 81003; 82533; 84443; 85025; 87086; 99211; G0463